=== PATIENT | male | born 1940 | race Caucasian/White ===

== ENCOUNTER 2019-12-19 13:15 | Outpatient (CLI) | payer MEDICARE, OTHER ==
[2019-12-19] MEDS ORDERED: GABA-530 PO (13:47)
[2019-12-19] MEDS ORDERED: POTA-84 PO (13:47)
[2019-12-19] MEDS ORDERED: AMOX-580 PO (13:47)
[2019-12-19] MEDS ORDERED: HYDR-4353 PO (13:47)
[2019-12-19] MEDS ORDERED: HYDR-4069 PO (13:47)
[2019-12-19] MEDS ORDERED: ATOR10TA87 PO (13:47)
[2019-12-19] MEDS ORDERED: ASCO500C17 PO (13:47)
[2019-12-19] MEDS ORDERED: OMEP40CA13 PO (13:47)
[2019-12-19] MEDS ORDERED: FOLI0.4T2 PO (13:47)
[2019-12-19] MEDS ORDERED: DABI150C PO (13:47)
[2019-12-19] MEDS ORDERED: FERR325T28 PO (13:47)
[2019-12-19] MEDS ORDERED: THIA100T70 PO (13:47)
[2019-12-19] MEDS ORDERED: FURO-150 PO (13:47)
[2019-12-19] MEDS ORDERED: DICL100G15 TOP (13:47)
[2019-12-19] MEDS ORDERED: LOSA1TAB39 PO (13:47)
[2019-12-19] MEDS ORDERED: CARB15DR58 EACHEYE (13:47)
[2019-12-19] MEDS ORDERED: FLO0.4C PO (13:47)
[2019-12-19 14:36] LABS: BASOPHILS % (AUTO) 0.7 % (0-1); EOSINOPHILS # (AUTO) 0.1 X10'3 (0-0.9); EOSINOPHILS % (AUTO) 1.2 % (0-6); LYMPHOCYTES # (AUTO) 0.8 X10'3 (1.1-4.8); LYMPHOCYTES % (AUTO) 15.1 % (21-51); MEAN CORPUSCULAR HEMOGLOBIN 30.2 PG (27.0-31.0); MEAN CORPUSCULAR HGB CONC 32.8 g/dL (33.0-36.5); MEAN CORPUSCULAR VOLUME 91.9 FL (78-98); MEAN PLATELET VOLUME 8.4 FL (7.4-10.4); MONOCYTES # (AUTO) 0.5 X10'3 (0-0.9); MONOCYTES % (AUTO) 8.7 % (2-12); NEUTROPHILS # (AUTO) 4.1 X10'3 (1.8-7.7); NEUTROPHILS % (AUTO) 74.3 % (42-75); PRE OP HEMATOCRIT 39.3 % (42.0-52.0); PRE OP HEMOGLOBIN 12.9 g/dL (14.0-17.9); PRE OP PLATELET COUNT 211 X10'3 (140-440); RED BLOOD COUNT 4.28 X10'6 (4.70-6.10); RED CELL DISTRIBUTION WIDTH 15.8 % (11.5-14.5)
[2019-12-19 14:46] LABS: CLARITY,URINE CLEAR (Clear); COLOR,URINE YELLOW (Yellow); GLUCOSE, URINE NEGATIVE (Neg); KETONES,URINE NEGATIVE (Neg); LEUKOCYTE ESTERASE ,URINE NEGATIVE (Neg); NITRITES, URINE NEGATIVE (Neg); OCCULT BLOOD,URINE NEGATIVE (Neg); PH,URINE 5.5 (4.8-8.0); PROTEIN,URINE NEGATIVE (Neg)
[2019-12-19 14:50] LABS: PRE OP INR 1.2 INR; PRE OP PROTIME 12.5 SECONDS (9.0-12.0)
[2019-12-19 14:52] LABS: ALBUMIN 3.5 G/DL (3.4-5.0); ALBUMIN/GLOBULIN RATIO 0.9 (1.1-1.5); ALKALINE PHOSPHATASE 117 IU/L (46-116); BLOOD UREA NITROGEN 21 MG/DL (7-18); BUN/CREATININE RATIO 20.2 (5.4-32.0); CALCIUM 9.1 MG/DL (8.5-10.1); CHLORIDE 103 MMOL/L (99-107); CREATININE 1.04 MG/DL (0.60-1.10); PRE OP ALT 18 U/L (30-65); PRE OP ANION GAP 8 (8-16); PRE OP AST 16 U/L (10-37); PRE OP GLUCOSE 99 MG/DL (70-104); PRE OP SODIUM 142 MMOL/L (135-145); TOTAL PROTEIN 7.6 G/DL (6.4-8.2); eGFR 69 ML/MIN
[2019-12-19 14:53] LABS: UA COLLECTION TYPE VOIDED
[2019-12-19 15:07] LABS: PRE OP POTASSIUM 3.3 MMOL/L (3.4-5.1)
== END 2019-12-19 23:59 | disposition home or self-care (01) ==
LOC: PRE-OP 13:15 → EDSTATUS 12-29 07:30
PROVIDERS: ATTEND Podiatrist Foot & Ankle Surgery
DX: Z01.818 Encounter for other preprocedural examination (principal); M19.071 Primary osteoarthritis, right ankle and foot; M20.21 Hallux rigidus, right foot; M21.41 Flat foot [pes planus] (acquired), right foot; M79.671 Pain in right foot; M20.11 Hallux valgus (acquired), right foot; M21.40 Flat foot [pes planus] (acquired), unspecified foot; M25.471 Effusion, right ankle; J43.9 Emphysema, unspecified; M47.814 Spondylosis without myelopathy or radiculopathy, thoracic region; M81.0 Age-related osteoporosis without current pathological fracture; I48.91 Unspecified atrial fibrillation; Z20.828 Contact with and (suspected) exposure to other viral communicable diseases
CPT/HCPCS: 36415; 71046; 80053; 81003; 85025; 85610; 85730; 87635; 93005

== ENCOUNTER 2020-09-24 07:55 | Day surgery (SDC) | payer OTHER ==
[2020-09-18 17:04] LABS: BASOPHILS % (AUTO) 0.6 % (0-1); EOSINOPHILS # (AUTO) 0.1 X10'3 (0-0.9); EOSINOPHILS % (AUTO) 1.5 % (0-6); LYMPHOCYTES # (AUTO) 0.6 X10'3 (1.1-4.8); LYMPHOCYTES % (AUTO) 10.6 % (21-51); MEAN CORPUSCULAR HEMOGLOBIN 31.5 PG (27.0-31.0); MEAN CORPUSCULAR HGB CONC 33.3 g/dL (33.0-36.5); MEAN CORPUSCULAR VOLUME 94.5 FL (78-98); MEAN PLATELET VOLUME 8.8 FL (7.4-10.4); MONOCYTES # (AUTO) 0.5 X10'3 (0-0.9); MONOCYTES % (AUTO) 9.3 % (2-12); NEUTROPHILS # (AUTO) 4.4 X10'3 (1.8-7.7); PRE OP HEMATOCRIT 38.2 % (42.0-52.0); PRE OP HEMOGLOBIN 12.7 g/dL (14.0-17.9); PRE OP PLATELET COUNT 162 X10'3 (140-440); RED BLOOD COUNT 4.04 X10'6 (4.70-6.10); RED CELL DISTRIBUTION WIDTH 16.4 % (11.5-14.5)
[2020-09-18 17:13] LABS: PRE OP INR 1.3 INR; PRE OP PROTIME 13.1 SECONDS (9.0-12.0)
[2020-09-18 17:17] LABS: ALBUMIN 3.1 G/DL (3.4-5.0); ALBUMIN/GLOBULIN RATIO 0.8 (1.1-1.5); ALKALINE PHOSPHATASE 108 IU/L (46-116); BLOOD UREA NITROGEN 23 MG/DL (7-18); CALCIUM 8.6 MG/DL (8.5-10.1); CHLORIDE 109 MMOL/L (99-107); CREATININE 1.15 MG/DL (0.60-1.10); PRE OP ALT 20 U/L (30-65); PRE OP ANION GAP 5 (8-16); PRE OP AST 21 U/L (10-37); PRE OP BILIRUB, TOTAL 1.2 MG/DL (0.0-1.0); PRE OP GLUCOSE 113 MG/DL (70-104); PRE OP POTASSIUM 3.5 MMOL/L (3.4-5.1); PRE OP SODIUM 143 MMOL/L (135-145); TOTAL CARBON DIOXIDE 28.6 MMOL/L (24-32); eGFR 61 ML/MIN
[~2020-09-24] VITALS: Ht 188 cm; Wt 109.8 kg
[~2020-09-24 07:55] MED LIST: ASCO500C17 PO; ATOR10TA87 PO; DABI150C PO; DOCUMENT DATE & TIME OF BETA-BLOCKER PO ONE; FERR325T28 PO; FLO0.4C PO; FURO-150 PO; GABA-530 PO; HYDR-4069 PO; HYDR-4353 PO; HYDROmorphone 1 mg/ml syringe IV PRN; HYDROmorphone inj. 0.5 MG/0.5 ML DISP.SYRIN IV PRN; LOP25T PO; LOSA1TAB39 PO; OMEP40CA21 PO; POTA-84 PO; THIA100T70 PO; acetaminophen 325mg tablet PO ONE; acetaminophen 325mg tablet PO PRN; bisacodyl 10mg suppository rectal RC PRN; cefazolin/dext.iso 2gm/100ml IV ONE; celeCOXIB 100mg capsule PO ONE; diphenhydrAMINE 25mg capsule PO PRN; famotidine 20mg tablet PO ONE; gabapentin 300mg capsule PO ONE; magnesium hydroxide 30ml (MOM) UD suspension PO PRN; metoclopramide 5 mg/ml inj IV ONE; non-formulary drug (Omeprazole (Prilosec) 1 CAP) PO PRN; ondansetron/PF 4mg/2ml inj IV PRN; oxyCODONE SR 10mg (sust. release) tab -2 tabs (20mg) PO ONE; oxyCODONE/APAP 10/325mg tablet PO PRN; potassium cl 20mEq in 1/2 NS 1,000 ML IV SCH; ringers solution, lacted 1,000 ML IV SCH; tranexamic acid 1gm/0.7% sal. 100 ML IV ONE; vancomycin 1,500 MG in NS 300ml IV soln IV ONE
[2020-09-24] MEDS ORDERED: metoprolol tartrate 25mg tablet PO SCH (08:00)
[2020-09-24] MEDS ORDERED: atorvastatin 10mg tablet PO SCH (08:00)
[2020-09-24] MEDS ORDERED: POTASSIUM CHLORIDE PO SCH (08:00)
[2020-09-24] MEDS ORDERED: gabapentin 300mg capsule PO SCH (08:00)
[2020-09-24] MEDS ORDERED: gabapentin 100mg capsule PO SCH (08:00)
[2020-09-24] MEDS ORDERED: ascorbic acid 500mg tablet PO SCH (08:00)
[2020-09-24] MEDS ORDERED: multivitamins, therapeutics tablet PO SCH (08:00)
[2020-09-24] MEDS ORDERED: hydrALAZINE 25 MG tablet PO SCH (08:00)
[2020-09-24] MEDS ORDERED: non-formulary drug (Losartan/Hydrochlorothiazide (Losartan-Hctz 100-25 Mg Tab) 1 TAB) PO SCH (08:00)
[2020-09-24] MEDS ORDERED: dabigatran 150mg capsule PO SCH (08:00)
[2020-09-24] MEDS ORDERED: furosemide 20MG tablet PO SCH (08:00)
[2020-09-24] MEDS ORDERED: tranexamic acid 1gm/0.7% sal. 100 ML IV ONE (15:00)
[2020-09-24] MEDS ORDERED: cefazolin/dext.iso 2gm/100ml 100 ML IV SCH (16:00)
[2020-09-24] MEDS ORDERED: sennosides 8.6mg tablet PO SCH (21:00)
[2020-09-24] MEDS ORDERED: tamsulosin 0.4mg capsule PO SCH (21:00)
[2020-09-24] MEDS ORDERED: VANCOMYCIN 1,500MG inj. 1,500 MG in normal saline 500ml IV soln 500 ML IV SCH (22:00)
[2020-09-25] MEDS ORDERED: celeCOXIB 100mg capsule PO SCH (20:00)
== END 2020-09-24 10:45 | disposition home or self-care (01) ==
LOC: PAS 07:55
PROVIDERS: ATTEND Orthopaedic Surgery
DX: M17.11 Unilateral primary osteoarthritis, right knee (principal); Z53.8 Procedure and treatment not carried out for other reasons; L02.415 Cutaneous abscess of right lower limb; E66.9 Obesity, unspecified; Z68.32 Body mass index [BMI] 32.0-32.9, adult; M19.071 Primary osteoarthritis, right ankle and foot; I10 Essential (primary) hypertension; G47.30 Sleep apnea, unspecified; G62.9 Polyneuropathy, unspecified; Z20.822 Contact with and (suspected) exposure to COVID-19; Z87.891 Personal history of nicotine dependence; Z72.89 Other problems related to lifestyle; Z98.890 Other specified postprocedural states; Z96.652 Presence of left artificial knee joint; Z79.01 Long term (current) use of anticoagulants
CPT/HCPCS: 36415; 80053; 85025; 85610; 85730; 86885; 86900; 86901; 87081; 87635; C9803; J3370; J7040; J7120

== ENCOUNTER 2021-02-04 06:06 | Day surgery (SDC) | payer OTHER ==
[2021-01-29 12:39] LABS: BASOPHILS % (AUTO) 0.6 % (0-1); EOSINOPHILS # (AUTO) 0.1 X10'3 (0-0.9); EOSINOPHILS % (AUTO) 1.9 % (0-6); LYMPHOCYTES # (AUTO) 0.8 X10'3 (1.1-4.8); LYMPHOCYTES % (AUTO) 14.8 % (21-51); MEAN CORPUSCULAR HEMOGLOBIN 30.8 PG (27.0-31.0); MEAN CORPUSCULAR HGB CONC 33.5 g/dL (33.0-36.5); MEAN PLATELET VOLUME 8.7 FL (7.4-10.4); MONOCYTES # (AUTO) 0.6 X10'3 (0-0.9); MONOCYTES % (AUTO) 10.2 % (2-12); NEUTROPHILS # (AUTO) 4.1 X10'3 (1.8-7.7); NEUTROPHILS % (AUTO) 72.5 % (42-75); PRE OP HEMATOCRIT 37.2 % (42.0-52.0); PRE OP HEMOGLOBIN 12.5 g/dL (14.0-17.9); PRE OP PLATELET COUNT 196 X10'3 (140-440); RED BLOOD COUNT 4.05 X10'6 (4.70-6.10); RED CELL DISTRIBUTION WIDTH 15.8 % (11.5-14.5)
[2021-01-29 12:54] LABS: PRE OP INR 1.3 INR
[2021-01-29 13:02] LABS: ALBUMIN 3.3 G/DL (3.4-5.0); ALBUMIN/GLOBULIN RATIO 0.8 (1.1-1.5); ALKALINE PHOSPHATASE 101 IU/L (46-116); BLOOD UREA NITROGEN 19 MG/DL (7-18); BUN/CREATININE RATIO 17.4 (5.4-32.0); CALCIUM 8.9 MG/DL (8.5-10.1); CHLORIDE 103 MMOL/L (99-107); CREATININE 1.09 MG/DL (0.60-1.10); PRE OP ALT 20 U/L (30-65); PRE OP ANION GAP 6 (8-16); PRE OP AST 15 U/L (10-37); PRE OP BILIRUB, TOTAL 1.2 MG/DL (0.0-1.0); PRE OP GLUCOSE 102 MG/DL (70-104); PRE OP SODIUM 142 MMOL/L (135-145); TOTAL CARBON DIOXIDE 32.9 MMOL/L (24-32); TOTAL PROTEIN 7.4 G/DL (6.4-8.2); eGFR 65 ML/MIN
[2021-01-29 13:28] LABS: PRE OP POTASSIUM 3.3 MMOL/L (3.4-5.1)
[2021-02-04] VITALS (28 sets, daily range): BP systolic 111–142; BP diastolic 60–90
[~2021-02-04] VITALS: Ht 188 cm; Wt 110.2 kg
[~2021-02-04 06:06] MED LIST changes: +DICL387C TOP; -FLO0.4C PO; +FOLI0.4T14 PO; -HYDROmorphone 1 mg/ml syringe IV PRN; -HYDROmorphone inj. 0.5 MG/0.5 ML DISP.SYRIN IV PRN; -acetaminophen 325mg tablet PO PRN; -bisacodyl 10mg suppository rectal RC PRN; -cefazolin/dext.iso 2gm/100ml IV ONE; +cefazolin/dext.iso 2gm/50ml IV ONE; -diphenhydrAMINE 25mg capsule PO PRN; -magnesium hydroxide 30ml (MOM) UD suspension PO PRN; -non-formulary drug (Omeprazole (Prilosec) 1 CAP) PO PRN; -ondansetron/PF 4mg/2ml inj IV PRN; -oxyCODONE/APAP 10/325mg tablet PO PRN; -potassium cl 20mEq in 1/2 NS 1,000 ML IV SCH; -ringers solution, lacted 1,000 ML IV SCH; -tranexamic acid 1gm/0.7% sal. 100 ML IV ONE; +tranexamic acid inj. 1,000 MG in 0.7% saline 100 ML PMX IV ONE
[2021-02-04] MEDS: ringers solution, lacted 1,000 ML IV SCH ×2 (06:56→19:44)
[2021-02-04] MEDS ORDERED: pantoprazole 40mg Tablet.DR PO PRN (07:05)
[2021-02-04] MEDS ORDERED: ROPIVAcaine 0.5% (5mg/ml) 30ml vial ONE (07:05)
[2021-02-04] MEDS ORDERED: ketorolac trometh. 30mg/ml inj. ONE (07:05)
[2021-02-04] MEDS ORDERED: epiNEPHrine 1 mg/ml inj ONE (07:06)
[2021-02-04] MEDS ORDERED: cloNIDine hcl/PF 100mcg/ml inj ONE (07:06)
[2021-02-04] MEDS ORDERED: HYDROmorphone 1 mg/ml syringe IV PRN (07:10)
[2021-02-04] MEDS ORDERED: magnesium hydroxide 30ml (MOM) UD suspension PO PRN (07:10)
[2021-02-04] MEDS ORDERED: diphenhydrAMINE 25mg capsule PO PRN ×2 (07:10)
[2021-02-04] MEDS ORDERED: HYDROmorphone inj. 0.5 MG/0.5 ML DISP.SYRIN IV PRN (07:10)
[2021-02-04] MEDS ORDERED: oxyCODONE/APAP 10/325mg tablet PO PRN ×2 (07:10)
[2021-02-04] MEDS ORDERED: ondansetron/PF 4mg/2ml inj IV PRN ×2 (07:10→09:35)
[2021-02-04] MEDS ORDERED: tranexamic acid inj. 0 MG in normal saline 100ml IV soln 100 ML IV ONE (07:10)
[2021-02-04] MEDS ORDERED: acetaminophen 325mg tablet PO PRN (07:10)
[2021-02-04] MEDS ORDERED: bisacodyl 10mg suppository rectal RC PRN (07:10)
[2021-02-04 07:46] LABS: PRE OP INR 1.2 INR; PRE OP PROTIME 11.9 SECONDS (9.0-12.0)
[2021-02-04 07:53] LABS: ALANINE AMINOTRANSFERASE 21 U/L (12-78); ALBUMIN 3.1 G/DL (3.4-5.0); ALBUMIN/GLOBULIN RATIO 0.8 (1.1-1.5); ALKALINE PHOSPHATASE 104 IU/L (46-116); ANION GAP 6 (8-16); ASPARTATE AMINO TRANSFERASE 14 U/L (10-37); BILIRUBIN,TOTAL 1.2 MG/DL (0.1-1.0); BLOOD UREA NITROGEN 20 MG/DL (7-18); BUN/CREATININE RATIO 17.9 (5.4-32.0); CALCIUM 8.9 MG/DL (8.5-10.1); CHLORIDE 103 MMOL/L (99-107); CREATININE 1.12 MG/DL (0.60-1.10); GLUCOSE 106 MG/DL (70-104); SODIUM 140 MMOL/L (135-145); TOTAL CARBON DIOXIDE 30.7 MMOL/L (24-32); eGFR 63 ML/MIN
[2021-02-04] MEDS ORDERED: glycopyrrolate 0.2mg/ml inj ONE ×2 (08:22→09:29)
[2021-02-04] MEDS ORDERED: fentaNYL/PF 50MCG/1 ML 2ML syringe ONE ×2 (08:38→09:06)
[2021-02-04] MEDS ORDERED: vancomycin 1,000mg inj ONE (09:13)
[2021-02-04] MEDS ORDERED: hydrALAZINE 20mg/ml inj. IV ONE (09:29)
[2021-02-04] MEDS ORDERED: atropine 0.4 mg/ml 20ml vial ONE (09:29)
[2021-02-04] MEDS ORDERED: propofol inj 20 ML IV ONE (09:29)
[2021-02-04] MEDS ORDERED: rocuronium 10mg/ml inj IV ONE (09:29)
[2021-02-04] MEDS ORDERED: ePHEDrine 50MG/ML INJ. ONE (09:29)
[2021-02-04] MEDS ORDERED: LIDOcaine 2% (20mg/ml) 5ml vial ONE (09:29)
[2021-02-04] MEDS ORDERED: morphine 2 MG/ML inj. syringe IV PRN (09:35)
[2021-02-04] MEDS ORDERED: ROPIVAcaine 0.2% (10 MG/5 ML) BOLUS INJECTION ADDCANAL PRN (09:35)
[2021-02-04] MEDS ORDERED: HYDROmorphone/PF 0.2 MG/ML SYRINGE IV PRN ×2 (09:35)
[2021-02-04] MEDS ORDERED: ringers solution, lacted 1,000 ML IV SCH (09:35)
[2021-02-04] MEDS ORDERED: ROPIVAcaine 0.2%/PF PUMP/bolus 545 ML ADDCANAL SCH (09:35)
[2021-02-04] MEDS ORDERED: hydrALAZINE 20mg/ml inj. IV PRN (09:35)
[2021-02-04] MEDS ORDERED: neostigmine methylsulfate 1 MG/ML 10ml vial ONE (09:44)
[2021-02-04] MEDS ORDERED: morphine 4 MG/ML inj SYRINge ONE ×2 (09:44→10:32)
--- NOTE | 2021-02-04 10:35 | NUR ---
PT ARRIVED FROM RECOVERY VIA BED ACCOMPANIED BY DR. COOPER, ANESTHESIA REPORT GIVEN, VSS PT C/O SOME PAIN BEHIND KNEE 09/24, DR. COOPER GAVE SOME PAIN MEDS UPON ARRIVAL, RIGHT KNEE-WRAP WITH POWDER PACK AND DON-CDI, SCDS ON, PIV LUE-LR RUNNING AT 100ML/HR, +PULSES TO BLE
[2021-02-04] MEDS ORDERED: potassium Cl 20 mEq SR tablet PO PRN ×2 (12:05→12:30)
[2021-02-04] MEDS ORDERED: potassium CL 10mEq/100ml bag 100 ML IV PRN ×2 (12:05→12:30)
[2021-02-04] MEDS: potassium Cl 20 mEq SR tablet PO PRN ×3 (12:47→21:18)
--- NOTE | 2021-02-04 13:00 | NUR ---
PT DOING WELL, WAITING FOR TELE BED, VSS, PAIN BETTER CONTROLLED WITH ON-Q AND SOME MORE DILAUDID, ISTAT-K+ SHOWN TO BE 2.9, DR. COOPER INFORMED AND ORDERS GIVEN-PT STARTED ON PO KDUR X 3 DOSES.
[2021-02-04] MEDS ORDERED: tranexamic acid inj. 1,000 MG in 0.7% saline 100 ML PMX IV ONE (14:00)
--- NOTE | 2021-02-04 15:15 | NUR ---
PT HAS EATEN LUNCH, VSS, PAIN WELL CONTROLLED, NO CHANGES IN DRSG OR PULSES, REPORT CALLED TO TERRY MERIDA-ALL QUESTIONS ANSWERED, TAKEN VIA BED TO ROOM 3024B WITH ALL BELONGINGS, BED LOW AND LOCKED, PRIMARY RN IN ROOM TO RECEIVE PT.
[2021-02-04] MEDS: potassium Cl 20 mEq SR tablet PO SCH (16:00)
[2021-02-04] MEDS: cefazolin/dext.iso 2gm/50ml 50 ML IV SCH (17:01)
[2021-02-04] MEDS: atorvastatin 10mg tablet PO SCH (17:02)
[2021-02-04] MEDS: furosemide 20MG tablet PO SCH (17:02)
[2021-02-04] MEDS: gabapentin 300mg capsule PO SCH ×2 (17:02→21:17)
[2021-02-04] MEDS: losartan 50mg tablet PO SCH (17:04)
[2021-02-04] MEDS: potassium cl 20mEq in 1/2 NS 1,000 ML IV SCH (17:07)
[2021-02-04] MEDS ORDERED: VANCOMYCIN 1,500MG inj. 1,500 MG in normal saline 500ml IV soln 300 ML IV SCH (19:00)
--- NOTE | 2021-02-04 19:02 | NUR ---
Patient in room PCU 3024. I have received report from Maribel MERIDA and had the opportunity to ask questions and assume patient care.
--- NOTE | 2021-02-04 19:09 | NUR ---
Problems reprioritized. Patient report given, questions answered & plan of care reviewed with dennis samuel.
[2021-02-04] MEDS: ascorbic acid 500mg tablet PO SCH (19:40)
[2021-02-04] MEDS: dabigatran 150mg capsule PO SCH (19:40)
[2021-02-04] MEDS: metoprolol tartrate 12.5mg (1/2 tablet) PO SCH (19:43)
[2021-02-04] MEDS: hydrALAZINE 25 MG tablet PO SCH (19:44)
[2021-02-04] MEDS ORDERED: sennosides 8.6mg tablet PO SCH (21:00)
[2021-02-05] MEDS: potassium cl 20mEq in 1/2 NS 1,000 ML IV SCH (00:01)
[2021-02-05] MEDS: cefazolin/dext.iso 2gm/50ml 50 ML IV SCH (00:02)
[2021-02-05 02:00] VITALS: BP 116/65
[2021-02-05 05:56] LABS: BASOPHILS % (AUTO) 0.2 % (0-1); EOSINOPHILS % (AUTO) 0 % (0-6); HEMOGLOBIN 12.1 g/dl (14.0-17.9); LYMPHOCYTES # (AUTO) 0.4 X10'3 (1.1-4.8); LYMPHOCYTES % (AUTO) 4.2 % (21-51); MEAN CORPUSCULAR HGB CONC 33.6 g/dL (33.0-36.5); MEAN CORPUSCULAR VOLUME 92.2 FL (78-98); MEAN PLATELET VOLUME 8.8 FL (7.4-10.4); MONOCYTES # (AUTO) 1.1 X10'3 (0-0.9); MONOCYTES % (AUTO) 10.2 % (2-12); NEUTROPHILS % (AUTO) 85.4 % (42-75); PLATELET COUNT 175 X10'3 (140-440); RED BLOOD COUNT 3.91 X10'6 (4.70-6.10); RED CELL DISTRIBUTION WIDTH 15.7 % (11.5-14.5); WHITE BLOOD COUNT 10.6 X10'3 (4.5-11.0)
[2021-02-05 06:11] LABS: ANION GAP 6 (8-16); CHLORIDE 103 MMOL/L (99-107); POTASSIUM 4.5 MMOL/L (3.5-5.1); SODIUM 137 MMOL/L (135-145); TOTAL CARBON DIOXIDE 27.7 MMOL/L (24-32)
--- NOTE | 2021-02-05 06:43 | NUR ---
Problems reprioritized. Patient report given, questions answered & plan of care reviewed with Aliyah MERIDA.
--- NOTE | 2021-02-05 07:11 | NUR ---
Patient in room PCU 3024. I have received report from Carmela MERIDA and had the opportunity to ask questions and assume patient care.
[2021-02-05 07:37] LABS: ISTAT K 2.9 mmol/L (3.5-5.1)
[2021-02-05 07:38] LABS: ISTAT HGB 12.9 g/dl (14.0-18.0); ISTAT IONIZED CALCIUM 1.15 mmol/L (1.03-1.32)
[2021-02-05 08:00] VITALS: BP 133/71
[2021-02-05] MEDS: metoprolol tartrate 12.5mg (1/2 tablet) PO SCH (08:00)
[2021-02-05] MEDS: potassium Cl 20 mEq SR tablet PO SCH (08:00)
[2021-02-05] MEDS: furosemide 20MG tablet PO SCH (08:00)
[2021-02-05] MEDS: hydrALAZINE 25 MG tablet PO SCH (08:00)
[2021-02-05 08:01] VITALS: BP_SYST 133
[2021-02-05] MEDS: ascorbic acid 500mg tablet PO SCH (08:01)
[2021-02-05] MEDS: dabigatran 150mg capsule PO SCH (08:01)
[2021-02-05] MEDS: losartan 50mg tablet PO SCH (08:01)
[2021-02-05] MEDS: gabapentin 300mg capsule PO SCH (08:01)
[2021-02-05] MEDS: atorvastatin 10mg tablet PO SCH (08:11)
--- NOTE | 2021-02-05 11:19 | NUR ---
patient discharged with family member. discharge summary given and explained to patient prior to discharge. iv line discontinued with cannula intact.
[2021-02-05] MEDS ORDERED: celeCOXIB 100mg capsule PO SCH (20:00)
== END 2021-02-05 17:18 | disposition home or self-care (01) ==
LOC: PAS 06:06 → PCU 3S 15:15 → PAS 02-05 17:18
PROVIDERS: ATTEND Orthopaedic Surgery
DX: M17.11 Unilateral primary osteoarthritis, right knee (principal); Z79.01 Long term (current) use of anticoagulants; Z79.899 Other long term (current) drug therapy
CPT/HCPCS: 27447; 36415; 73560; 76937; 80047; 80051; 80053; 82948; 85025; 85610; 85730; 86885; 86900; 86901; 87081; 93005; 97110; 97116; 97161; C1713; C1776; J0171; J0360; J0461; J0690; J0735; J1170; J1885; J2270; J2704; J2710; J2765; J2795; J3010; J3370; J3480; J3490; J7030; J7040; J7120; U0003; U0005; Z7506; Z7508; Z7512; A4215; A7000; G0378

== ENCOUNTER 2021-03-29 11:54 | Emergency (ER) | payer OTHER, MEDICARE ==
[~2021-03-29] VITALS: Ht 188 cm; Wt 104.0 kg
[~2021-03-29 11:54] MED LIST changes: -DOCUMENT DATE & TIME OF BETA-BLOCKER PO ONE; -acetaminophen 325mg tablet PO ONE; -cefazolin/dext.iso 2gm/50ml IV ONE; -celeCOXIB 100mg capsule PO ONE; -famotidine 20mg tablet PO ONE; -gabapentin 300mg capsule PO ONE; -metoclopramide 5 mg/ml inj IV ONE; -oxyCODONE SR 10mg (sust. release) tab -2 tabs (20mg) PO ONE; -tranexamic acid inj. 1,000 MG in 0.7% saline 100 ML PMX IV ONE; -vancomycin 1,500 MG in NS 300ml IV soln IV ONE
[2021-03-29] MEDS ORDERED: bisacodyl 5mg tablet.DR PO ONE (21:45)
[2021-03-29] MEDS ORDERED: CefTRIAXone/D5W-Rocephin 1gm 50 ML IV STA (22:42)
[2021-03-29 23:02] LABS: BASOPHILS % (AUTO) 0.4 % (0-1); EOSINOPHILS # (AUTO) 0.1 X10'3 (0-0.9); EOSINOPHILS % (AUTO) 0.5 % (0-6); HEMATOCRIT 39.2 % (42.0-52.0); HEMOGLOBIN 13.5 g/dl (14.0-17.9); LYMPHOCYTES # (AUTO) 0.8 X10'3 (1.1-4.8); LYMPHOCYTES % (AUTO) 7.4 % (21-51); MEAN CORPUSCULAR HEMOGLOBIN 29.7 PG (27.0-31.0); MEAN CORPUSCULAR HGB CONC 34.5 g/dL (33.0-36.5); MEAN CORPUSCULAR VOLUME 86.1 FL (78-98); MEAN PLATELET VOLUME 7.5 FL (7.4-10.4); MONOCYTES % (AUTO) 9.4 % (2-12); NEUTROPHILS # (AUTO) 8.5 X10'3 (1.8-7.7); NEUTROPHILS % (AUTO) 82.3 % (42-75); PLATELET COUNT 396 X10'3 (140-440); RED BLOOD COUNT 4.56 X10'6 (4.70-6.10); WHITE BLOOD COUNT 10.3 X10'3 (4.5-11.0)
[2021-03-29 23:03] LABS: ALANINE AMINOTRANSFERASE 18 U/L (12-78); ALBUMIN 3.1 G/DL (3.4-5.0); ALBUMIN/GLOBULIN RATIO 0.6 (1.1-1.5); ALKALINE PHOSPHATASE 115 IU/L (46-116); ANION GAP 8 (8-16); ASPARTATE AMINO TRANSFERASE 15 U/L (10-37); BILIRUBIN,DIRECT 0.7 MG/DL (0-0.3); BILIRUBIN,TOTAL 1.6 MG/DL (0.1-1.0); BLOOD UREA NITROGEN 21 MG/DL (7-18); BUN/CREATININE RATIO 16.7 (5.4-32.0); CALCIUM 9.9 MG/DL (8.5-10.1); CHLORIDE 96 MMOL/L (99-107); CREATININE 1.26 MG/DL (0.60-1.10); GLUCOSE 115 MG/DL (70-104); LIPASE < 50 U/L (73-393); POTASSIUM 3.1 MMOL/L (3.5-5.1); SODIUM 139 MMOL/L (135-145); TOTAL CARBON DIOXIDE 34.8 MMOL/L (24-32); TOTAL PROTEIN 8.5 G/DL (6.4-8.2); eGFR 55 ML/MIN
[2021-03-29] MEDS ORDERED: iohexol 350MG/ML 100ml bottle IV ONE (23:21)
[2021-03-30 00:22] LABS: APTT 40 SECONDS (22-32)
[2021-03-30 02:56] LABS: CLARITY,URINE CLEAR (Clear); COLOR,URINE YELLOW (Yellow); GLUCOSE, URINE NEGATIVE (Neg); KETONES,URINE TRACE mg/dl (Neg); LEUKOCYTE ESTERASE ,URINE NEGATIVE (Neg); NITRITES, URINE NEGATIVE (Neg); OCCULT BLOOD,URINE NEGATIVE (Neg); PROTEIN,URINE NEGATIVE (Neg)
[2021-03-30 03:02] LABS: UA COLLECTION TYPE URINAL
[2021-03-30] MEDS ORDERED: LIDOcaine 1% W/epiNEPHrine 1:100,000 20ml vial SQ ONE (05:35)
[2021-03-30] MEDS ORDERED: fentaNYL/PF 50MCG/1 ML 2ML syringe IV ONE (06:10)
--- NOTE | 2021-03-30 07:50 | NUR ---
Pt turned and new linen placed. CT is secure to chest and abd. No dependant looping. Pillow placed behind pt's torso per Dr. Buchanan.
--- NOTE | 2021-03-30 08:00 | NUR ---
CT on L draining sanquinous fluid. Marked chamber at 170ml.
[2021-03-30] MEDS ORDERED: HYDROcodone/acetaminophen 5mg/325mg tablet PO ONE (09:55)
[2021-03-30] MEDS ORDERED: LORazepam 2 mg/ml vial IV ONE (11:20)
--- NOTE | 2021-03-30 11:25 | NUR ---
To MRI via gurney, transported by RN, and health information tech x 2.
--- NOTE | 2021-03-30 12:53 | NUR ---
Returned from MRI. Pt tolerated the procedure.
[2021-03-30] MEDS ORDERED: phytonadione inj. 5 MG in normal saline 100ml IV soln 100 ML IV ONE (13:20)
[2021-03-30 15:03] VITALS: BP 183/100
--- NOTE | 2021-03-30 15:16 | NUR ---
Report given to FUAD Mei and FUAD Bauman/[employer] Crew.
--- NOTE | 2021-03-30 15:23 | NUR ---
Report given to FUAD Romero in the ER at [facility].
== END 2021-03-30 15:28 | disposition short-term general hospital (02) ==
LOC: ER 11:55
DX: S22.079A Unspecified fracture of T9-T10 vertebra, initial encounter for closed fracture (principal); S22.089A Unspecified fracture of T11-T12 vertebra, initial encounter for closed fracture; Z20.822 Contact with and (suspected) exposure to COVID-19; K59.00 Constipation, unspecified; R11.0 Nausea; J93.9 Pneumothorax, unspecified; I48.91 Unspecified atrial fibrillation; I50.9 Heart failure, unspecified; Z79.899 Other long term (current) drug therapy; X58.XXXA Exposure to other specified factors, initial encounter; Y93.89 Activity, other specified; Y92.89 Other specified places as the place of occurrence of the external cause; Y99.8 Other external cause status
CPT/HCPCS: 32556; 36415; 71045; 71275; 72128; 72131; 72146; 74018; 74176; 80048; 80076; 81003; 83690; 85025; 85379; 85610; 85730; 87635; 93005; 96365; 96366; 96367; 96375; 99291; 99292; C9803; J0696; J2060; J3010; J3430; J3490; Q9967

== ENCOUNTER 2022-08-14 07:10 | Day surgery (SDC) | payer OTHER ==
[2022-08-11 14:16] LABS: BASOPHILS # (AUTO) 0.1 X10'3 (0-0.2); EOSINOPHILS # (AUTO) 0.2 X10'3 (0-0.9); LYMPHOCYTES # (AUTO) 0.9 X10'3 (1.1-4.8); LYMPHOCYTES % (AUTO) 10.8 % (21-51); MEAN CORPUSCULAR HEMOGLOBIN 32.7 PG (27.0-31.0); MEAN CORPUSCULAR HGB CONC 33.9 g/dL (33.0-36.5); MEAN CORPUSCULAR VOLUME 96.7 FL (78-98); MEAN PLATELET VOLUME 8.1 FL (7.4-10.4); MONOCYTES # (AUTO) 0.7 X10'3 (0-0.9); MONOCYTES % (AUTO) 8.8 % (2-12); NEUTROPHILS # (AUTO) 6.1 X10'3 (1.8-7.7); NEUTROPHILS % (AUTO) 77.4 % (42-75); PRE OP HEMATOCRIT 42.4 % (42.0-52.0); PRE OP HEMOGLOBIN 14.4 g/dL (14.0-17.9); PRE OP PLATELET COUNT 303 X10'3 (140-440); RED BLOOD COUNT 4.38 X10'6 (4.70-6.10); RED CELL DISTRIBUTION WIDTH 15.9 % (11.5-14.5)
[2022-08-11 14:25] LABS: ALBUMIN 3.5 G/DL (3.4-5.0); ALBUMIN/GLOBULIN RATIO 0.8 (1.1-1.5); ALKALINE PHOSPHATASE 159 IU/L (46-116); BLOOD UREA NITROGEN 36 MG/DL (7-18); BUN/CREATININE RATIO 29.3 (10.0-20.0); CALCIUM 9.4 MG/DL (8.5-10.1); CHLORIDE 103 MMOL/L (99-107); CREATININE 1.23 MG/DL (0.60-1.10); PRE OP ALT 23 U/L (30-65); PRE OP ANION GAP 8 (8-16); PRE OP AST 24 U/L (10-37); PRE OP BILIRUB, TOTAL 1.4 MG/DL (0.0-1.0); PRE OP GLUCOSE 98 MG/DL (70-104); PRE OP POTASSIUM 3.6 MMOL/L (3.4-5.1); PRE OP SODIUM 144 MMOL/L (135-145); TOTAL CARBON DIOXIDE 32.7 MMOL/L (24-32); TOTAL PROTEIN 8.1 G/DL (6.4-8.2); eGFR 56 ML/MIN
[2022-08-14] VITALS (8 sets, daily range): BP systolic 122–135; BP diastolic 71–91
[~2022-08-14] VITALS: Ht 188 cm; Wt 104.4 kg
[~2022-08-14 07:10] MED LIST changes: +ACETAMIN PO; +BUPIVAcaine/PF 2.5 mg/ml (0.25%) 30ml vial ONE; +CHOL100046 PO; +CYAN500T71 PO; -DICL387C TOP; +DOCUMENT DATE & TIME OF BETA-BLOCKER PO ONE; -FERR325T28 PO; +FLO0.4C PO; -HYDR-4353 PO; +HYDR25TA5 PO; -LOSA1TAB39 PO; +LOSA25TA96 PO; +cefazolin 2gm/D5W 100mL 100 ML IV ONE; +famotidine 20mg tablet PO ONE; +ringers solution, lacted 1,000 ML IV SCH
[2022-08-14] MEDS ORDERED: glycopyrrolate 0.2mg/ml inj ONE (10:27)
[2022-08-14] MEDS ORDERED: ROPIVAcaine 0.5% (5mg/ml) 30ml vial ONE (10:29)
[2022-08-14] MEDS ORDERED: dexamethasone sod phosphate 4mg/ml inj. ONE (10:29)
[2022-08-14] MEDS ORDERED: midazolam 1 mg/ML 2ml injection ONE (10:29)
[2022-08-14] MEDS ORDERED: fentaNYL/PF 50MCG/1 ML 2ML syringe ONE (11:00)
[2022-08-14] MEDS ORDERED: ringers solution, lacted 1,000 ML IV SCH (11:30)
[2022-08-14] MEDS ORDERED: ondansetron/PF 4mg/2ml inj IV PRN (11:30)
[2022-08-14] MEDS ORDERED: morphine 4 MG/ML inj SYRINge IV PRN (11:30)
[2022-08-14] MEDS ORDERED: meperidine/PF 25mg/ml syringe IV PRN ×3 (11:30)
[2022-08-14] MEDS ORDERED: morphine 2 MG/ML inj. syringe IV PRN (11:30)
[2022-08-14] MEDS ORDERED: proCHLORperazine 10 MG/2 ml inj IV PRN (11:30)
[2022-08-14] MEDS ORDERED: LIDOcaine 2% (20mg/ml) 5ml vial ONE (11:37)
[2022-08-14] MEDS ORDERED: LIDOcaine 1%/PF 5ML 10 MG/ML VIAL ONE (11:37)
--- NOTE | 2022-08-14 11:47 | NUR ---
Received from OR via [facility], accompanied by Anesthesiologist DR KELLY and report given by Anesthesiologist AND NANNY BABYSITTER. PT DROWSY, DENIES PAIN. RIGHT ARM FROM FINGERS TO ELBOW W/SPLINT/DRSG/BIAS WRAP COVERING CDI. FINGERS PWD, TOOLSMITH 1-2 SECONDS. Addendum: 08/14/22 at 1211 by Erin Arcos RN Amended: Links added.
--- NOTE | 2022-08-14 12:47 | NUR ---
PT UP AND ABLE TO AMBULATE SAFELY. REGIONAL NERVE BLOCK STICKER PLACED ON PTS SLING, D/C INSTRUCTIONS GONE OVER W/PT AND PTS WHO BOTH VERBALIZE UNDERSTANDING. PT D/CD TO HOME VIA W/C TO PRIVATE VEHICLE W/O INCIDENT.
== END 2022-08-14 12:47 | disposition home or self-care (01) ==
LOC: PAS 07:10
PROVIDERS: ATTEND Orthopaedic Surgery Hand Surgery
DX: S52.391A Other fracture of shaft of radius, right arm, initial encounter for closed fracture (principal); E66.9 Obesity, unspecified; Z68.29 Body mass index [BMI] 29.0-29.9, adult; I48.91 Unspecified atrial fibrillation; K21.9 Gastro-esophageal reflux disease without esophagitis; G62.9 Polyneuropathy, unspecified; G47.30 Sleep apnea, unspecified; I10 Essential (primary) hypertension; M17.11 Unilateral primary osteoarthritis, right knee; N40.0 Benign prostatic hyperplasia without lower urinary tract symptoms; G89.18 Other acute postprocedural pain; M19.071 Primary osteoarthritis, right ankle and foot; Z79.899 Other long term (current) drug therapy; Z98.890 Other specified postprocedural states; Z72.89 Other problems related to lifestyle; Z87.891 Personal history of nicotine dependence; Z96.653 Presence of artificial knee joint, bilateral; V89.2XXA Person injured in unspecified motor-vehicle accident, traffic, initial encounter; Y93.89 Activity, other specified; Y92.89 Other specified places as the place of occurrence of the external cause; Y99.8 Other external cause status
CPT/HCPCS: 25515; 36415; 64417; 80053; 82948; 85025; 93005; C1713; J0690; J1100; J2250; J2795; J3010; J3490; J7030; J7120; Z7506; Z7508; Z7512; A4215; A4618; A6449; A7000

== ENCOUNTER 2024-01-17 15:15 | Inpatient (IN) | payer MEDICARE, OTHER ==
[~2024-01-17] VITALS: Ht 188 cm; Wt 116.0 kg
[~2024-01-17 15:15] MED LIST changes: -BUPIVAcaine/PF 2.5 mg/ml (0.25%) 30ml vial ONE; -DOCUMENT DATE & TIME OF BETA-BLOCKER PO ONE; -HYDR-4069 PO; +HYDR25TA90 PO; +LOSA-415 PO; -LOSA25TA96 PO; -cefazolin 2gm/D5W 100mL 100 ML IV ONE; -famotidine 20mg tablet PO ONE; -ringers solution, lacted 1,000 ML IV SCH
[2024-01-17 15:35] LABS: BASOPHILS % (AUTO) 0.2 % (0-1); EOSINOPHILS % (AUTO) 0.1 % (0-6); HEMATOCRIT 40.2 % (42.0-52.0); HEMOGLOBIN 13.3 g/dl (14.0-17.9); LYMPHOCYTES # (AUTO) 0.4 X10'3 (1.1-4.8); LYMPHOCYTES % (AUTO) 4.4 % (21-51); MEAN CORPUSCULAR HEMOGLOBIN 31.5 PG (27.0-31.0); MEAN CORPUSCULAR HGB CONC 32.9 g/dL (33.0-36.5); MEAN CORPUSCULAR VOLUME 95.6 FL (78-98); MEAN PLATELET VOLUME 8.5 FL (7.4-10.4); MONOCYTES # (AUTO) 0.9 X10'3 (0-0.9); MONOCYTES % (AUTO) 9.1 % (2-12); NEUTROPHILS # (AUTO) 8.3 X10'3 (1.8-7.7); NEUTROPHILS % (AUTO) 86.2 % (42-75); PLATELET COUNT 173 X10'3 (140-440); RED BLOOD COUNT 4.21 X10'6 (4.70-6.10); RED CELL DISTRIBUTION WIDTH 16.4 % (11.5-14.5); WHITE BLOOD COUNT 9.6 X10'3 (4.5-11.0)
[2024-01-17 16:19] LABS: ALANINE AMINOTRANSFERASE 23 U/L (12-78); ALBUMIN 2.8 G/DL (3.4-5.0); ALBUMIN/GLOBULIN RATIO 0.6 (1.1-1.5); ALKALINE PHOSPHATASE 108 IU/L (46-116); ANION GAP 3 (8-16); ASPARTATE AMINO TRANSFERASE 24 U/L (10-37); BILIRUBIN,TOTAL 3.1 MG/DL (0.1-1.0); BLOOD UREA NITROGEN 32 MG/DL (7-18); BUN/CREATININE RATIO 22.1 (10.0-20.0); CALCIUM 8.6 MG/DL (8.5-10.1); CHLORIDE 100 MMOL/L (99-107); CREATININE 1.45 MG/DL (0.60-1.10); GLUCOSE 113 MG/DL (70-104); PRO BRAIN NATRIURETIC PEPTIDE 8926 PG/ML (0-450); SODIUM 139 MMOL/L (135-145); TOTAL CARBON DIOXIDE 35.7 MMOL/L (24-32); TOTAL PROTEIN 7.7 G/DL (6.4-8.2); eCRCL 44 ML/MIN; eGFR 46 ML/MIN
[2024-01-17 16:26] LABS: POTASSIUM 2.9 MMOL/L (3.5-5.1)
[2024-01-17 16:54] LABS: MAGNESIUM 2.1 MG/DL (1.5-2.4)
[2024-01-17] MEDS: CefTRIAXone 2gm/D5W 50ml BAG 50 ML IV STA (17:44)
[2024-01-17] MEDS: azithromycin/NS 500mg/250ml 250 ML IV ONE (17:44)
[2024-01-17] MEDS: potassium Cl 20 mEq SR tablet PO ONE (17:44)
[2024-01-17] MEDS: potassium CL 10mEq/100ml bag 100 ML IV ONE (17:49)
[2024-01-17] MEDS ORDERED: iohexol 350MG/ML 100ml bottle IV ONE (18:29)
[2024-01-17] MEDS ORDERED: magnesium Cl slow-release 64mg tablet PO PRN (20:30)
[2024-01-17] MEDS ORDERED: magnesium sulf-water 4G/100mL 100 ML IV PRN (20:30)
[2024-01-17] MEDS ORDERED: magnesium hydroxide 30ml (MOM) UD suspension PO PRN (20:30)
[2024-01-17] MEDS ORDERED: ondansetron/PF 4mg/2ml inj IV PRN (20:30)
[2024-01-17] MEDS ORDERED: magnesium sulf-water 2g/50mL 50 ML IV PRN (20:30)
[2024-01-17] MEDS ORDERED: acetaminophen 325mg tablet PO PRN (20:30)
[2024-01-17] MEDS ORDERED: potassium Cl 40MEQ/1/2NS 520ml 520 ML IV PRN (20:30)
[2024-01-17] MEDS ORDERED: potassium Cl 20 mEq SR tablet PO PRN (20:30)
[2024-01-17 20:52] LABS: BILIRUBIN,URINE NEGATIVE (Neg); CLARITY,URINE CLEAR (Clear); COLOR,URINE YELLOW (Yellow); GLUCOSE, URINE NEGATIVE (Neg); KETONES,URINE NEGATIVE (Neg); LEUKOCYTE ESTERASE ,URINE NEGATIVE (Neg); NITRITES, URINE NEGATIVE (Neg); OCCULT BLOOD,URINE MODERATE (Neg); PH,URINE 5.5 (4.8-8.0); PROTEIN,URINE NEGATIVE (Neg); UROBILINOGEN,URINE 0.2 E.U/dL (0.2-1.0)
[2024-01-17 20:57] VITALS: PULSE 86; RESP 17; O2SAT 96
[2024-01-17 21:03] LABS: UA COLLECTION TYPE NON-SPECIFIED
[2024-01-17 21:04] LABS: BACTERIA,URINE 1+ /HPF (Neg); SQUAMOUS EPITHELIAL CELL,UR FEW /LPF (FEW); WBC,URINE 0-4 /HPF (0-4)
[2024-01-17] MEDS: PERFLUTREN PROTEIN-A MICROSPHR (Optison) 0.22 MG/ML 3ML VIAL IV ONE (21:17)
[2024-01-18] VITALS (8 sets, daily range): BP systolic 120–142; BP diastolic 39–76; PULSE 59–85; RESP 10–24; TEMP 97.1–98.5; O2SAT 89–97
[2024-01-18 03:16] LABS: BASOPHILS % (AUTO) 0.1 % (0-1); EOSINOPHILS # (AUTO) 0.1 X10'3 (0-0.9); EOSINOPHILS % (AUTO) 0.6 % (0-6); HEMATOCRIT 35.3 % (42.0-52.0); HEMOGLOBIN 11.7 g/dl (14.0-17.9); LYMPHOCYTES # (AUTO) 0.4 X10'3 (1.1-4.8); LYMPHOCYTES % (AUTO) 3.3 % (21-51); MEAN CORPUSCULAR HEMOGLOBIN 31.5 PG (27.0-31.0); MEAN CORPUSCULAR HGB CONC 33.2 g/dL (33.0-36.5); MEAN PLATELET VOLUME 9.2 FL (7.4-10.4); MONOCYTES # (AUTO) 1.1 X10'3 (0-0.9); MONOCYTES % (AUTO) 9.5 % (2-12); NEUTROPHILS # (AUTO) 9.8 X10'3 (1.8-7.7); NEUTROPHILS % (AUTO) 86.5 % (42-75); PLATELET COUNT 166 X10'3 (140-440); RED BLOOD COUNT 3.71 X10'6 (4.70-6.10); RED CELL DISTRIBUTION WIDTH 16.1 % (11.5-14.5); WHITE BLOOD COUNT 11.3 X10'3 (4.5-11.0)
[2024-01-18 03:34] LABS: ALBUMIN 2.5 G/DL (3.4-5.0); ANION GAP 6 (8-16); BLOOD UREA NITROGEN 30 MG/DL (7-18); BUN/CREATININE RATIO 21.9 (10.0-20.0); CALCIUM 8.4 MG/DL (8.5-10.1); CHLORIDE 101 MMOL/L (99-107); CREATININE 1.37 MG/DL (0.60-1.10); GLUCOSE 106 MG/DL (70-104); POTASSIUM 3.3 MMOL/L (3.5-5.1); SODIUM 142 MMOL/L (135-145); TOTAL CARBON DIOXIDE 35.1 MMOL/L (24-32); eCRCL 46 ML/MIN; eGFR 49 ML/MIN
[2024-01-18] MEDS: K and/or MAG REPLACEMENT MC SCH (08:00)
[2024-01-18] MEDS: docusate sod 100mg capsule PO SCH (08:00)
[2024-01-18] MEDS: guaiFENesin ER 600mg tablet PO SCH (09:18)
[2024-01-18] MEDS: furosemide 10 MG/1 ML 10ml inj IV SCH (09:26)
[2024-01-18] MEDS: potassium Cl 20 mEq SR tablet PO PRN (11:43)
[2024-01-18] MEDS: dabigatran 150mg capsule PO SCH (11:45)
[2024-01-18] MEDS: methylPREDNISolone sod succ/PF 40mg inj. IV SCH (16:11)
[2024-01-18] MEDS: CefTRIAXone/D5W-Rocephin 1gm 50 ML IV SCH (17:09)
[2024-01-18] MEDS: mag hydrox/Alum hydrox/simeth 30ml oral suspension PO PRN (17:42)
[2024-01-18] MEDS: azithromycin/NS 500mg/250ml 250 ML IV SCH (17:42)
[2024-01-18] MEDS ORDERED: ipratropium/albuterol 3ml nebule NEB PRN (18:05)
[2024-01-18] MEDS ORDERED: albuterol 2.5 MG/3 ML nebule NEB PRN (18:05)
[2024-01-19 02:00] VITALS: BP 134/77; PULSE 59; RESP 14; TEMP 96.8; O2SAT 95
[2024-01-19 06:00] VITALS: BP 141/76; PULSE 61; RESP 17; TEMP 97.6; O2SAT 96
[2024-01-19 08:00] VITALS: RESP 17; O2SAT 96
[2024-01-19 08:02] LABS: BASOPHILS % (AUTO) 0.2 % (0-1); EOSINOPHILS % (AUTO) 0 % (0-6); HEMOGLOBIN 12.3 g/dl (14.0-17.9); LYMPHOCYTES # (AUTO) 0.3 X10'3 (1.1-4.8); MONOCYTES # (AUTO) 0.2 X10'3 (0-0.9)
[2024-01-19 08:03] LABS: HEMATOCRIT 35.9 % (42.0-52.0); LYMPHOCYTES % (AUTO) 4.2 % (21-51); MEAN CORPUSCULAR HEMOGLOBIN 32.5 PG (27.0-31.0); MEAN CORPUSCULAR HGB CONC 34.3 g/dL (33.0-36.5); MEAN CORPUSCULAR VOLUME 94.5 FL (78-98); MEAN PLATELET VOLUME 8.9 FL (7.4-10.4); MONOCYTES % (AUTO) 2.7 % (2-12); NEUTROPHILS # (AUTO) 6.2 X10'3 (1.8-7.7); NEUTROPHILS % (AUTO) 92.9 % (42-75); PLATELET COUNT 196 X10'3 (140-440); WHITE BLOOD COUNT 6.7 X10'3 (4.5-11.0)
[2024-01-19 08:24] LABS: ALBUMIN 2.3 G/DL (3.4-5.0); ANION GAP 5 (8-16); BLOOD UREA NITROGEN 27 MG/DL (7-18); BUN/CREATININE RATIO 23.7 (10.0-20.0); CALCIUM 8.5 MG/DL (8.5-10.1); CHLORIDE 104 MMOL/L (99-107); CREATININE 1.14 MG/DL (0.60-1.10); GLUCOSE 206 MG/DL (70-104); MAGNESIUM 2.3 MG/DL (1.5-2.4); POTASSIUM 3.5 MMOL/L (3.5-5.1); SODIUM 145 MMOL/L (135-145); TOTAL CARBON DIOXIDE 35.8 MMOL/L (24-32); eCRCL 55 ML/MIN; eGFR 61 ML/MIN
[2024-01-19] MEDS ORDERED: ASPI-1265 PO (10:33)
[2024-01-19] MEDS ORDERED: FURO-150 PO (10:33)
[2024-01-19] MEDS ORDERED: LEVO750T68 PO (10:33)
[2024-01-19 11:00] VITALS: BP 114/61; PULSE 74; RESP 17; TEMP 97.6; O2SAT 97
[2024-01-19 12:21] VITALS: PULSE 56; RESP 20; O2SAT 91
[2024-01-19] MEDS ORDERED: furosemide 40mg/4ml inj IV SCH (14:13)
[2024-01-19] MEDS ORDERED: PRED10TA23 PO (21:21)
== END 2024-01-19 15:45 | disposition home or self-care (01) | DRG 280 ==
LOC: ER 15:15 → ED HOLD 20:39 → PCU 3S 01-18 07:04
PROVIDERS: ADMIT Internal Medicine Critical Care Medicine; ATTEND Internal Medicine
PROC: B32T1ZZ Computerized Tomography (CT Scan) of Left Pulmonary Artery using Low Osmolar Contrast (ICD-10-PCS; principal; 2024-01-17)
PROC: B3201ZZ Computerized Tomography (CT Scan) of Thoracic Aorta using Low Osmolar Contrast (ICD-10-PCS; 2024-01-17)
PROC: B32S1ZZ Computerized Tomography (CT Scan) of Right Pulmonary Artery using Low Osmolar Contrast (ICD-10-PCS; 2024-01-17)
DX: I13.0 Hypertensive heart and chronic kidney disease with heart failure and stage 1 through stage 4 chronic kidney disease, or unspecified chronic kidney disease (principal); I50.33 Acute on chronic diastolic (congestive) heart failure; I21.A1 Myocardial infarction type 2; J96.01 Acute respiratory failure with hypoxia; J18.9 Pneumonia, unspecified organism; I48.20 Chronic atrial fibrillation, unspecified; Z20.822 Contact with and (suspected) exposure to COVID-19; I27.20 Pulmonary hypertension, unspecified; E87.6 Hypokalemia; N18.30 Chronic kidney disease, stage 3 unspecified; G47.33 Obstructive sleep apnea (adult) (pediatric); E78.49 Other hyperlipidemia; N40.0 Benign prostatic hyperplasia without lower urinary tract symptoms; J44.89 Other specified chronic obstructive pulmonary disease; Z79.899 Other long term (current) drug therapy
CPT/HCPCS: 36415; 71045; 71275; 80048; 80053; 81001; 83605; 83735; 83880; 84145; 84484; 85025; 87040; 87081; 87502; 87503; 87811; 92508; 92616; 93005; 93306; 93971; 94760; 99285; A6212; A6213; A6449; G0378; J0456; J0696; J1940; J2919; J3480; J7030; J7040; Q9967